=== PATIENT | female | born 1995 | race Caucasian/White ===

== ENCOUNTER 2017-09-26 18:38 | Emergency (ER) | payer OTHER, SELFPAY ==
--- NOTE | 2017-09-26 18:42 | ED.UPPEXIN ---
HPI - Extremity Injury (Upper) <TYLOR Maza - Last Filed: 09/26/17 22:19> General Chief Complaint: Extremity Injury, Upper Stated Complaint: RIGHT INDEX FINGER CUT Time Seen by Provider: 09/26/17 18:42 History of Present Illness HPI narrative: 22-year-old female here for complaint of a small laceration to the distal right index finger that she obtained today when she was cooking at work today. She states that she her finger when along the edge of the metal Fryer. She said and sharp fashion caused a small laceration to index finger. She denies any other injuries or concerns. No bleeding. She reports that her tetanus is up-to-date last tetanus was approximately 3 years ago. complaint: injury to: right and finger Related Data Allergies Allergy/AdvReac Type Severity Reaction Status Date / Time Latex, Natural Rubber AdvReac Verified 09/26/17 18:50 Review of Systems <TYLOR Maza - Last Filed: 09/26/17 22:19> Constitutional Denies chills, Denies fever(s), Denies lethargy and Denies weakness Eyes Denies change in vision, Denies eye discharge, Denies irritation and Denies loss of vision ENT Ears, Nose, Mouth, and Throat: Denies change in voice, Denies neck pain and Denies sore throat Cardiovascular Denies chest pain, Denies irregular heart rhythm, Denies lightheadedness, Denies palpitations, Denies dyspnea, Denies dyspnea on exertion and Denies orthopnea Respiratory Denies cough, Denies dyspnea, Denies dyspnea on exertion and Denies wheezing Gastrointestinal Gastrointestinal: Denies abdominal pain, Denies change in bowel habits, Denies diarrhea, Denies nausea and Denies vomiting Genitourinary Denies hematuria, Denies flank pain, Denies urinary incontinence and Denies urinary urgency Musculoskeletal Denies neck pain Comments: Small laceration to right index finger distal tip. Integumentary/Breasts Denies pruritus, Denies erythema, Denies rash and Denies wounds Neurologic Denies confusion, Denies loss of vision and Denies weakness Psychiatric Denies anxiety, Denies confusion, Denies depression, Denies homicidal ideation and Denies suicidal ideation Endocrine Denies palpitations Hematologic/Lymphatic Denies easy bruising Allergic/Immunologic Denies wheezing Exam <TYLOR Maza - Last Filed: 09/26/17 22:19> Initial Vital Signs Initial Vital Signs: Vital Signs Temperature 98.5 F 09/26/17 18:51 Pulse Rate 75 09/26/17 18:51 Respiratory Rate 20 09/26/17 18:51 Blood Pressure 114/64 09/26/17 18:51 Pulse Oximetry 99 09/26/17 18:51 Const General: cooperative and well developed Nutritional Appearance: well nourished Orientation: alert, awake, oriented x3 and not confused [facility] Mouth: oral mucosae normal and moist mucous membranes Eyes Conjunctivae: conjunctivae normal Sclera: sclerae normal Pupils: PERRL EOM: EOM intact bilaterally Resp Effort & Inspection: normal respiratory effort, able to speak in complete sentences, no respiratory distress and no use of accessory muscles Auscultation: clear to auscultation bilaterally, no rales, no rhonchi and no wheezes Cardio Rate: regular rate Rhythm: regular rhythm Heart Sounds: no click, no gallops, no murmurs and no rubs Pulses: normal peripheral pulses Skin General: no rashes or lesions noted, No jaundice and No petechiae Neuro General: alert, oriented x3, gait normal and no focal motor deficits Speech: speech normal Extrem Other: Superficial 0.5 cm laceration to the distal tip of the right index finger. Distal sensation is intact. Distal cap refill less than 2 sec. Full range of motion of the right index finger <Karina Nichols DO - Last Filed: 09/27/17 02:29> Initial Vital Signs Initial Vital Signs: Vital Signs Temperature 98.5 F 09/26/17 18:51 Pulse Rate 75 09/26/17 18:51 Respiratory Rate 20 09/26/17 18:51 Blood Pressure 114/64 09/26/17 18:51 Pulse Oximetry 99 09/26/17 18:51 Course <TYLOR Maza - Last Filed: 09/26/17 22:19> Vital Signs - 8 hr 09/26/17 18:51 09/26/17 20:58 Temperature 98.5 F Pulse Rate 75 73 Respiratory Rate 20 16 Blood Pressure 114/64 118/72 Pulse Oximetry 99 99 <Karina Nichols DO - Last Filed: 09/27/17 02:29> Vital Signs - 8 hr 09/26/17 18:51 09/26/17 20:58 Temperature 98.5 F Pulse Rate 75 73 Respiratory Rate 20 16 Blood Pressure 114/64 118/72 Pulse Oximetry 99 99 MDM - Extremity Injury (Upper) <TYLOR Maza - Last Filed: 09/26/17 22:19> [facility] Narrative Medical decision making narrative: Small laceration to the right distal index finger was irrigated with copious amount of normal saline. Wound was closed with Steri-Strips. Wound dressed with Band-Aid. [id number] Tylenol as needed for any discomfort. Follow up with primary care provider next week. Return emergency room for any worsening symptoms. Discharge Plan Departure Patient Disposition: Home, Self-Care Clinical Impression: Finger laceration Discharge Date/Time: 09/26/17 21:01 Interventions: ED Discharge Assessment Last Done: 09/26/17 20:58 Instructions: DI for Laceration Repair Steri-Strips Activity Restrictions/Additional Instructions: Laceration to the distal index finger was closed with Steri-Strips. Keep wound area clean and dry for the next few days until wound closes. Follow up with primary care provider next week. Use Tylenol as needed for any discomfort. For any worsening symptoms or signs infection return to the emergency room. Referrals: [facility] [Provider Group] Stand Alone Forms: Work/School Restrictions <Karina Nichols DO - Last Filed: 09/27/17 02:29> Cosign ED Attending Priscilla Attestation: I was immediately available in the department for consultation. Documentation has been reviewed. I agree with assessment and plan.
[2017-09-26 18:51] VITALS: BP 114/64; PULSE 75; RESP 20; TEMP 36.9; O2SAT 99
--- NOTE | 2017-09-26 20:04 | PC.NURSE ---
positive cms, tetnus up to date.
--- NOTE | 2017-09-26 20:05 | PC.NURSE ---
reports lac occured at work. pt was cleaning around a fryer and ran finger across something sharp. pt put triple abx ointment and a bandaid on finger initially. finger will bleed when pt washes hands so pt came into ED.
--- NOTE | 2017-09-26 20:57 | PC.NURSE ---
provider repaired lac with steri strips and covered wit bandaid. POS CMS
[2017-09-26 20:58] VITALS: BP 118/72; PULSE 73; RESP 16; O2SAT 99
== END 2017-09-26 21:01 | disposition home or self-care (01) ==
PROVIDERS: Emergency Provider Nurse Practitioner Family
DX: S61.210A Laceration without foreign body of right index finger without damage to nail, initial encounter (principal); W26.8XXA Contact with other sharp object(s), not elsewhere classified, initial encounter; Y99.0 Civilian activity done for income or pay
CPT/HCPCS: 99282